=== PATIENT | male | born 1955 | race Caucasian/White ===

== ENCOUNTER 2019-02-02 17:59 | Emergency (ER) | payer MEDICAID ==
[~2019-02-02] VITALS: Wt 77.3 kg
[2019-02-02 20:03] VITALS: BP 137/83; PULSE 66; RESP 20
--- NOTE | 2019-02-03 02:17 | ERD ---
ER Documentation Chief Complaint Chief Complaint angelique ingrown toenails HPI History of Present Illness: 63-year-old male accompanied by his daughter coming in today with complaint of ingrown toenails. Denies any past medical history for patient including diabetes. Reports that ingrown toenail have been present for several weeks and patient has been using clippers to clip away at them. Coming in today for removal of all ingrown toenails to bilateral great toes At home pharmacological/nonpharmacological treatment for symptoms: Denies Denies social concerns; Denies recent foreign travel ROS All systems reviewed and are negative except as per history of present illness. Allergies Allergies: Coded Allergies: No Known Allergy (Unverified , 02/02/19) PMhx/Soc Medical and Surgical Hx: pt denies Medical Hx, pt denies Surgical Hx Hx Alcohol Use: No Hx Substance Use: No Hx Tobacco Use: No Smoking Status: Never smoker FmHx Family History: No diabetes, No coronary disease Physical Exam Vitals Vital Signs Date Temp Pulse Resp B/P (MAP) Pulse Ox O2 O2 Flow FiO2 Time Delivery Rate 02/02/19 97.8 66 20 137/83 97 20:03 (101) 02/02/19 98.7 71 20 155/84 100 18:03 (107) Physical Exam Const: No acute distress, afebrile Head: Atraumatic Eyes: Normal Conjunctiva ENT: Normal External Ears, Nose and Mouth. Neck: Full range of motion. No meningismus. Resp: Clear to auscultation bilaterally Cardio: Regular rate and rhythm, no murmurs Abd: Soft, non tender, non distended. No guarding, no masses, no rigidity Skin: No petechiae or rashes Back: No midline or flank tenderness Ext: No cyanosis, or edema; bilateral lower extremities: Findings consistent with onychomycosis, no signs of infection or purulent discharge, no warmth, no erythema, obvious signs that toenails have been clipped with jagged edges Neur: Awake and alert x3, speaking in clear sentences, no focal deficits or facial asymmetry Psych: Normal Mood and Affect Procedures/MDM ED COURSE: ED course includes a thorough examination and history. The patient was stable throughout ED course. I kept the patient and/or family informed of laboratory and diagnostic imaging results throughout the ED course. MEDICAL DECISION MAKING: Low suspicion for life-threatening medical emergency.Low suspicion for infectious process. Otherwise healthy patient presenting with constellation of symptoms likely representing ingrown toenail as characterized by history, physical exam findings. Patient reassessment @ 1955: Patient hemodynamically stable. No respiratory distress, otherwise relatively well appearing and nontoxic. Disposition given. Patient educated on diagnoses, prescriptions, follow-up care, return precautions. Strict return precautions given for worsening condition; questions answered discharge. Patient verbalizes understanding of discharge instructions. PRESCRIPTIONS FOR HOME: None DISPOSITION: DISCHARGE At this time, patient is stable for discharge and outpatient management. I have instructed the patient to follow-up with his/her primary care physician in 1-2 days. I have discussed with the patient the possibility of needing to see a specialist for further workup and imaging studies if symptoms persist. I have instructed the patient to promptly return to the ER for any new or worsening symptoms including increased pain, fever, nausea, vomiting, weakness or LOC. The patient and/or family expressed understanding of and agreement with this plan. All questions were answered. Home care instructions were provided. DISCLAIMER: Inadvertent spelling and grammatical errors are likely due to EHR/dictation software use and do not reflect on the overall quality of patient care. Also, please note that the electronic time recorded on this note does not necessarily reflect the actual time of the patient encounter. Departure Diagnosis: Primary Impression: Nail problem Condition: Stable Patient Instructions: Ingrown Toenail, No Infect ([facility]) Referrals: SHANNEN GRIER KAZUTO H AYVAZIAN, HERMOZ B DPM TR BALDWIN DPM LAVERNE SALAZAR DPM, STEVEN CHAUDHRY, ABID N DPM SAAD DÍAZ DP CHELSEY TRINH FARID ESPENSEN, ERIC H. D.P.M. HAGOPJANIAN, ARMEN DPM RICCARDO REVELES TAE HYUN KOSARI, BABAK DP MARTIN JAFFE MD, VIJAY MASLIAH, MAURICE R DPM EZEKIEL GRANADO RONALD DPM NEJADRASOOL, MANSOUR DP SAULO BARKSDALE DPM, LEE C. DPM ROSS, ARNOLD S SARTE, RICHARD J. RHONA CRAWFORD FELIX SOLEYMANI, ASHKAN DPM SOOFER, BEHROOZ DAVID WALLEN, ELEANOR A Additional Instructions: Thank you very much for allowing us to participate in your care. Your health and safety is our top priority at [facility]. It is important to read all discharge instructions and education provided in your discharge packet. If the symptoms get worse and your provider is unavailable, return to the Emergency Department immediately. SCAR HAILE NP Feb 03, 2019 02:17
== END 2019-02-02 20:04 | disposition home or self-care (01) ==
LOC: FTE 17:59
DX: B35.1 Tinea unguium (principal)
CPT/HCPCS: 99282